=== PATIENT | female | born 1965 | race Caucasian/White ===

== ENCOUNTER → 2018-05-22 12:26 | Outpatient (CLI) | payer OTHER, BC, SELFPAY ==
[2018-05-22 12:57] LABS: Add Manual Diff / Slide Review NO; Basophils Percent Auto 0.6 % (0-2); Eosinophils Percent Auto 1.8 % (2-4); Hematocrit 40.5 % (36-46); Hemoglobin 13.5 g/dL (12.0-16.0); Lymphocytes Percent Auto 23.4 % (25-40); Mean Corpuscular HGB Conc 33.3 % (30-36); Mean Corpuscular Hemoglobin 27.9 PG (26-34); Mean Corpuscular Volume 83.6 fL (80-100); Monocytes Percent Auto 6.1 % (3-14); Neutrophils Absolute Auto 4800 /uL (3000-5900); Neutrophils Percent Auto 68.1 % (50-75); Platelet Count 216 X10^3/uL (150-400); Red Blood Cell Count 4.85 X10^6/uL (4.0-5.2); Red Cell Distribution Width 14.1 % (11.6-14.8)
[2018-05-22 13:09] LABS: Alanine Aminotransferase 34 IU/L (9-52); Albumin 4.7 g/dL (3.5-5.0); Albumin Globulin Ratio 1.4 (1.0-2.8); Alkaline Phosphatase 70 U/L (38-126); Aspartate Aminotransferase 24 IU/L (14-36); BUN Creatinine Ratio 27.1 (6-22); Bilirubin Total 0.7 mg/dL (0.2-1.3); Blood Urea Nitrogen 19 mg/dL (7-17); Calcium 9.5 mg/dL (8.4-10.2); Carbon Dioxide 25 mmol/L (22-32); Chloride 107 mmol/L (98-107); Cholesterol 202 mg/dL (140-199); Estimated Glomerular Filt Rate > 60.0 mL/min (>60); Globulin 3.3 g/dL (1.7-4.1); Glucose 89 mg/dL (70-100); HDL Cholesterol 47 mg/dL (40-60); HEMOLYSIS < 15 (0-50); LDL Cholesterol Calculated 139 mg/dL (<100); Potassium 4.4 mmol/L (3.4-5.1); Sodium 144 mmol/L (137-145); Triglycerides 78 mg/dL (35-150)
[2018-05-22 15:05] LABS: Thyroid Stimulating Hormone 2.14 uIU/mL (0.47-4.68)
== END ==
PROVIDERS: Visit Provider Naturopath
DX: Z00.00 Encounter for general adult medical examination without abnormal findings (principal)
CPT/HCPCS: 36415; 80053; 80061; 84443; 85025

== ENCOUNTER → 2018-07-23 10:17 | Outpatient (CLI) | payer OTHER, BC, SELFPAY ==
--- NOTE | 2018-07-23 | DI.MG.S_ITS ---
BILATERAL DIGITAL SCREENING MAMMOGRAM 3D/2D WITH CAD: 07/23/2018 CLINICAL: Routine screening. Baseline by default. No prior exams were available for comparison. There are scattered fibroglandular elements in both breasts. Current study was also evaluated with a Computer Aided Detection (CAD) system. No significant masses, calcifications, or other findings are seen in either breast. IMPRESSION: NEGATIVE There is no mammographic evidence of malignancy. A 1 year screening mammogram is recommended. NOTE: For mammograms, a report in lay terms will be sent to the patient. Approximately 15% of breast malignancies will not be visualized mammographically. In the management of a palpable breast mass, a negative mammogram must not discourage biopsy of a clinically suspicious lesion. Electronically Signed By: Dinah guerra/[email or web address]:07/23/2018 14:56:41 letter sent: Normal Exam ACR BI-RADS Category 1: Negative [id number]
== END ==
PROVIDERS: Visit Provider Naturopath
DX: Z12.31 Encounter for screening mammogram for malignant neoplasm of breast (principal)
CPT/HCPCS: 77063; 77067

== ENCOUNTER → 2018-12-13 14:10 | Outpatient (CLI) | payer OTHER, BC, SELFPAY ==
[2018-12-13 14:29] LABS: Add Manual Diff / Slide Review NO; Basophils Absolute Auto 0 /uL (0-100); Basophils Percent Auto 0.5 % (0-2); Eosinophils Absolute Auto 0 /uL (0-450); Eosinophils Percent Auto 0.2 % (2-4); Hematocrit 39.7 % (36-46); Hemoglobin 13.4 g/dL (12.0-16.0); Lymphocytes Absolute Auto 1000 /uL (1100-4500); Lymphocytes Percent Auto 11.1 % (25-40); Mean Corpuscular HGB Conc 33.7 % (30-36); Mean Corpuscular Hemoglobin 27.9 PG (26-34); Mean Corpuscular Volume 82.6 fL (80-100); Monocytes Absolute Auto 600 /uL (0-900); Monocytes Percent Auto 6.7 % (3-14); Neutrophils Absolute Auto 7600 /uL (1500-7000); Neutrophils Percent Auto 81.5 % (50-75); Platelet Count 194 X10^3/uL (150-400); Red Cell Distribution Width 13.8 % (11.6-14.8); White Blood Cell Count 9.3 X10^3/uL (4.5-11.0)
[2018-12-13 14:40] LABS: Alanine Aminotransferase 28 IU/L (9-52); Albumin 4.8 g/dL (3.5-5.0); Albumin Globulin Ratio 1.3 (1.0-2.8); Alkaline Phosphatase 63 U/L (38-126); Aspartate Aminotransferase 19 IU/L (14-36); Bilirubin Total 0.7 mg/dL (0.2-1.3); Blood Urea Nitrogen 14 mg/dL (7-17); Calcium 9.3 mg/dL (8.4-10.2); Carbon Dioxide 24 mmol/L (22-32); Chloride 102 mmol/L (98-107); Estimated Glomerular Filt Rate > 60.0 mL/min (>60); Globulin 3.6 g/dL (1.7-4.1); Glucose 101 mg/dL (70-100); HEMOLYSIS < 15 (0-50); Potassium 4.1 mmol/L (3.4-5.1); Sodium 138 mmol/L (137-145); Total Protein 8.4 g/dL (6.3-8.2)
== END ==
PROVIDERS: Visit Provider Specialist
DX: N10 Acute pyelonephritis (principal)
CPT/HCPCS: 36415; 80053; 85025

== ENCOUNTER 2018-12-30 10:30 | Outpatient (RCR) | payer OTHER, BC, SELFPAY ==
--- NOTE | 2018-09-04 12:02 | PT.OIE ---
Current Diagnoses Mixed incontinence (09/04/18) Provider Visit Care Team Role Provider Type Gerri Agudelo MD Attending Provider Physician Specialty: Family Practice Address: [address] [place] [address], [facility] Email: Physical Therapy Initial Evaluation PT-OP-A Visit Information Start: 09/04/18 11:32 Freq: Status: Active Protocol: Document 09/04/18 11:34 [facility] (Rec: 09/04/18 12:00 [facility] [id number]) Out-Patient Physical Therapy Visit Information Visit Information Visit Type Initial Evaluation Visit Start Time 10:30 Visit Stop Time 11:15 Total Visit Minutes 45 Visit Number 1 Evaluation Information Evaluation Date 09/04/18 PT-OP-B Current Condition Start: 09/04/18 11:32 Freq: Status: Active Protocol: Document 09/04/18 11:34 [facility] (Rec: 09/04/18 12:00 [facility] [id number]) Current Condition History of Current Condition Onset Date 12 months ago Current Complaints urinary incontinence both urge and stress History of Current Condition Beryl is a 52 year old female who has been expereincing constant urinary leakage now for the past year. 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 She worked 7 days a week from February through May and would work up to 12 hour days without a break including without a bathroom break. She had to significantly reduce her fluid intake during this time and following the completion of this job in May she began experiencing her symptoms of urinary leakage. PT-OP-I Pelvic Floor Start: 09/04/18 11:32 Freq: Status: Active Protocol: Document 09/04/18 11:34 [facility] (Rec: 09/04/18 12:00 [facility] [id number]) Pelvic Floor Assessment Urine Pelvic Floor Surgery No Urinary Symptoms Urge Sensation Leakage Size Large Leakage Cause Cough Exercise Lifting Sneeze Urge Other Leakage Causes leakage is constant throughout the day and also occurs at night. Leaks Per Day leakage is happening frequently throughout the day Nocturia yes Pads Used In 24 Hours several Urine Pad Type Maxi Pad Pelvic Clock Pelvic Clock 12-3 Atrophy Pelvic Clock 3-6 Tightness Pelvic Clock 6-9 Atrophy Tightness Pelvic Clock Other difficulty relaxing the pelvic floor following a contraction SEMG (uV) Baseline 2 10 Second Contraction 6.9 Recruitment Pattern Fair Relaxation Fair Holding Poor/Slow Stability of Hold Poor/Slow SEMG Stability of Rest Fair Contraction Ability Voluntary Contraction Weak Voluntary Relaxation Weak Manual Muscle Testing Left 2 Manual Muscle Testing Right 2 Manual Muscle Testing Anterior 2 Manual Muscle Testing Posterior 2 Muscle Endurance (Seconds) 5 Comments Pelvic Floor Comments initially difficulty relaxing the pelvic floor followign a contraction but Beryl responded well to Biofeedback and her resting tone was improved with repetitions. Her endurance is limited and contractions were shakey PT-OP-Q Treatments Start: 09/04/18 11:32 Freq: Status: Active Protocol: Document 09/04/18 12:00 [facility] (Rec: 09/04/18 12:02 [facility] [id number]) Therapeutic Exercises Supine Exercises 1 Supine Exercise Name pelvic floor quick contractions Reps/Minutes 10 reps Comments Beryl was educated on urge deference technique pelvic floor long holds Supine Exercise Name pelvic floor long holds Equipment Used EMG biofeedback Reps/Minutes 10 second hold with 10 sec rest Comments gave 5 second hold with 10 second rest for home PT-OP-T Assessment and Plan Start: 09/04/18 11:32 Freq: Status: Active Protocol: Document 09/04/18 11:34 [facility] (Rec: 09/04/18 12:00 [facility] [id number]) Physical Therapy Assessment Rehab Potential Rehabilitation Potential Excellent Evaluation Complexity Number of Personal Factors/Comorbidities 0 Number of Body Systems Impaired 1-2 Clinical Presentation at Evaluation Stable Impairments Impairments Activity Tolerance Strength Tone Other Impairments urinary urge and stress incontinence Goals Four Impairment poor endurance of the pelvic floor Short Term Goal (STG) Improve endurance of the pelvic floor to 10 second hold time or better in supine STG Duration 5 weeks Three Impairment Urinary stress incontinence Shelter Goal (LTG) With strengthening Beryl is able to reduce pad use to 1 xm or less per day Two Impairment Decreased strength of the pelvic floor 2/5 MMT Vegetable Farming Supervisor Goal (LTG) Beryl is able to improve the strength of her pelvic floor with home exercise program and EMG biofeedback LTG Duration 8 weeks One Impairment Urinary frequency and urgency Short Term Goal (STG) Beryl is educated in the urge deference technique to begin working on calming down the urge to void STG Duration 5 weeks Assessment Summary Assessment Beryl is a 52 year old female evaluated today for a 12 month hx of urinary stress and urge incontinence. Her symptoms began after she worked from February through May for a [employer] on Saturday. She worked 7 days per week and often up to 12 hour days without being given a lunch break or a bathroom break. She trained herself during that time to delay the need to void and she restricted her fluid intake. It was after this period of time that she began having symptoms of incontinence. It has gotten to the point now that she leaks constantly throughout the day and also wakes up wet at night. She goes through several thick pads per day. She does have the sensation that she needs to void with a strong urge but is often not able to make it to the bathroom on time. I gave her a bladder diary to begin working on to get a idea of her voiding schedule and leaks per day as well as fluid intake. With examination her pelvic floor is weak but she is able to facilitate all parts of the levator ani. She is guarded some on her side crystal and had difficulty with relaxation following a contraction. I would imagine she tightened her pelvic floor quite a bit trying to hold all day. We did start EMG biofeedback and with this she was able to relax her pelvic floor better. She has difficulty with sustaining a pelvic floor contraction and her contractions are quite shakey. I did educate her on the urge deference technique today just to try and void not at the peak of the urge and with time we will work on a voiding schedule. I am thinking her bladder was over stretched trying to delay the need to void for so long. The plan is to work on the pelvic floor, urge deference technique, and bladder retraining at this point. She may also be a candidate for Neuro muscular electrical stimulation home rental program Physical Therapy Plan Frequency and Duration Frequency of Treatment 1x/Week Duration of Treatment 8 weeks Plan of Care Start Date 09/04/18 Plan of Care End Date 10/30/18 Therapeutic Interventions Therapeutic Interventions Home Exercise Program Neuromuscular Re-education Patient/Caregiver Education Self-Care/Home Management Therapeutic Exercises Modalities Biofeedback Next Visit Focus/Plan Next Note Type Treatment Note Next Visit Plan begin strengthening the hips and lower abdominal musculature to assist the pelvic floor
--- NOTE | 2018-09-25 14:26 | PT.OTN ---
Current Diagnoses Mixed incontinence (09/25/18) Physical Therapy Treatment Note PT-OP-A Visit Information Start: 09/04/18 11:32 Freq: Status: Active Protocol: Document 09/25/18 14:16 [facility] (Rec: 09/25/18 14:25 [facility] [id number]) Out-Patient Physical Therapy Visit Information Visit Information Visit Type Treatment Note Visit Start Time 11:15 Visit Stop Time 12:10 Total Visit Minutes 55 Visit Number 2 Evaluation Information Evaluation Date 09/04/18 PT-OP-B Current Condition Start: 09/04/18 11:32 Freq: Status: Active Protocol: Document 09/04/18 11:34 [facility] (Rec: 09/04/18 12:00 [facility] [id number]) Current Condition History of Current Condition Onset Date 12 months ago Current Complaints urinary incontinence both urge and stress History of Current Condition Beryl is a 52 year old female who has been expereincing constant urinary leakage now for the past year. 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 She worked 7 days a week from February through May and would work up to 12 hour days without a break including without a bathroom break. She had to significantly reduce her fluid intake during this time and following the completion of this job in May she began experiencing her symptoms of urinary leakage. PT-OP-C Subjective Start: 09/04/18 11:32 Freq: Status: Active Protocol: Document 09/25/18 14:25 [facility] (Rec: 09/25/18 14:26 [facility] [email or web address]) OP-PT Subjective Patient Comments Patient Comments feeling like there has been no change in her symptoms so is feeling frustrated Patient Reported Progress Same PT-OP-I Pelvic Floor Start: 09/04/18 11:32 Freq: Status: Active Protocol: Document 09/04/18 11:34 [facility] (Rec: 09/04/18 12:00 [facility] [id number]) Pelvic Floor Assessment Urine Pelvic Floor Surgery No Urinary Symptoms Urge Sensation Leakage Size Large Leakage Cause Cough Exercise Lifting Sneeze Urge Other Leakage Causes leakage is constant throughout the day and also occurs at night. Leaks Per Day leakage is happening frequently throughout the day Nocturia yes Pads Used In 24 Hours several Urine Pad Type Maxi Pad Pelvic Clock Pelvic Clock 12-3 Atrophy Pelvic Clock 3-6 Tightness Pelvic Clock 6-9 Atrophy Tightness Pelvic Clock Other difficulty relaxing the pelvic floor following a contraction SEMG (uV) Baseline 2 10 Second Contraction 6.9 Recruitment Pattern Fair Relaxation Fair Holding Poor/Slow Stability of Hold Poor/Slow SEMG Stability of Rest Fair Contraction Ability Voluntary Contraction Weak Voluntary Relaxation Weak Manual Muscle Testing Left 2 Manual Muscle Testing Right 2 Manual Muscle Testing Anterior 2 Manual Muscle Testing Posterior 2 Muscle Endurance (Seconds) 5 Comments Pelvic Floor Comments initially difficulty relaxing the pelvic floor followign a contraction but Beryl responded well to Biofeedback and her resting tone was improved with repetitions. Her endurance is limited and contractions were shakey PT-OP-Q Treatments Start: 09/04/18 11:32 Freq: Status: Active Protocol: Document 09/25/18 14:16 [facility] (Rec: 09/25/18 14:25 [facility] [id number]) Therapeutic Exercises Supine Exercises 2 Supine Exercise Name TA facilitation in quadraped with relaxed awareness of the abdominal wall Comments emphasis on relaxed awareness of the abdominal wall 1 Supine Exercise Name pelvic floor quick contractions Reps/Minutes 10 reps Comments Beryl was educated on urge deference technique pelvic floor long holds Supine Exercise Name pelvic floor long holds Equipment Used EMG biofeedback Reps/Minutes 10 second hold with 10 sec rest Comments gave 5 second hold with 10 second rest for home Prone Exercises 1 Prone Exercise Name prone cobra stretch Comments for the bladder Other Exercises 1 Other Exercise Name pro pose Comments with breathing techniques for the pelvic floor Manual Therapy Treatment Soft Tissue Mobilization 1 Body Location MFR over the bladder and suprapubic fascia Comments pt taught how to self stretch her bladder Neuro Re-Education Treatment Other Activities 1 Details neuromuscular re-education of the pelvic floor with NMES Comments facilitating the pelvic floor contractions Self-Care/Home Management Treatment Education Patient Education Home Exercise Program Other Education education on regular voiding intervals, bladder diary given again to Beryl as she misplaced the last one, education on self MFR over the bladder, and education on voiding techniques to fully empty the bladder PT-OP-T Assessment and Plan Start: 09/04/18 11:32 Freq: Status: Active Protocol: Document 09/25/18 14:16 [facility] (Rec: 09/25/18 14:25 [facility] [id number]) Physical Therapy Assessment Assessment Summary Assessment Beryl is feeling like she hasn 't made any change yet in her symptoms. We reviewed the urge deference technique today and I advised a regular voiding schedule for her as well as avoiding any bladder irritants. She is demonstrating improved strength of the pelvic floor today and has a little better understanding of relaxed awareness of her pelvic floor. I did start NMES to 12:50 to help relax her bladder and facilitate the pelvic floor Physical Therapy Plan Frequency and Duration Frequency of Treatment 1x/Week Duration of Treatment 8 weeks Plan of Care Start Date 09/04/18 Plan of Care End Date 10/30/18 Therapeutic Interventions Therapeutic Interventions Home Exercise Program Neuromuscular Re-education Patient/Caregiver Education Self-Care/Home Management Therapeutic Exercises Modalities Biofeedback Next Visit Focus/Plan Next Note Type Treatment Note Next Visit Plan review stretches and urge deference technique, work on facilitation of the lower abdominal musculature to assist the pelvic floor, continue working on pelvic floor facilitation and relaxed awareness.
--- NOTE | 2018-10-16 16:33 | PT.OTN ---
Current Diagnoses Mixed incontinence (10/16/18) Physical Therapy Treatment Note PT-OP-A Visit Information Start: 09/04/18 11:32 Freq: Status: Active Protocol: Document 10/16/18 16:27 [facility] (Rec: 10/16/18 16:33 [facility] [id number]) Out-Patient Physical Therapy Visit Information Visit Information Visit Type Treatment Note Visit Start Time 11:15 Visit Stop Time 12:00 Total Visit Minutes 45 Visit Number 3 Evaluation Information Evaluation Date 09/04/18 PT-OP-B Current Condition Start: 09/04/18 11:32 Freq: Status: Active Protocol: Document 09/04/18 11:34 [facility] (Rec: 09/04/18 12:00 [facility] [id number]) Current Condition History of Current Condition Onset Date 12 months ago Current Complaints urinary incontinence both urge and stress History of Current Condition Beryl is a 52 year old female who has been expereincing constant urinary leakage now for the past year. 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 She worked 7 days a week from February through May and would work up to 12 hour days without a break including without a bathroom break. She had to significantly reduce her fluid intake during this time and following the completion of this job in May she began experiencing her symptoms of urinary leakage. PT-OP-C Subjective Start: 09/04/18 11:32 Freq: Status: Active Protocol: Document 10/16/18 16:27 [facility] (Rec: 10/16/18 16:33 [facility] [id number]) OP-PT Subjective Patient Comments Patient Comments Ordering the home NMES unit today for rental for a month. Has been trying to do the urge deference technique and keeping on a voiding schedule PT-OP-I Pelvic Floor Start: 09/04/18 11:32 Freq: Status: Active Protocol: Document 09/04/18 11:34 [facility] (Rec: 09/04/18 12:00 [facility] [id number]) Pelvic Floor Assessment Urine Pelvic Floor Surgery No Urinary Symptoms Urge Sensation Leakage Size Large Leakage Cause Cough Exercise Lifting Sneeze Urge Other Leakage Causes leakage is constant throughout the day and also occurs at night. Leaks Per Day leakage is happening frequently throughout the day Nocturia yes Pads Used In 24 Hours several Urine Pad Type Maxi Pad Pelvic Clock Pelvic Clock 12-3 Atrophy Pelvic Clock 3-6 Tightness Pelvic Clock 6-9 Atrophy Tightness Pelvic Clock Other difficulty relaxing the pelvic floor following a contraction SEMG (uV) Baseline 2 10 Second Contraction 6.9 Recruitment Pattern Fair Relaxation Fair Holding Poor/Slow Stability of Hold Poor/Slow SEMG Stability of Rest Fair Contraction Ability Voluntary Contraction Weak Voluntary Relaxation Weak Manual Muscle Testing Left 2 Manual Muscle Testing Right 2 Manual Muscle Testing Anterior 2 Manual Muscle Testing Posterior 2 Muscle Endurance (Seconds) 5 Comments Pelvic Floor Comments initially difficulty relaxing the pelvic floor followign a contraction but Beryl responded well to Biofeedback and her resting tone was improved with repetitions. Her endurance is limited and contractions were shakey PT-OP-Q Treatments Start: 09/04/18 11:32 Freq: Status: Active Protocol: Document 10/16/18 16:27 [facility] (Rec: 10/16/18 16:33 [facility] [id number]) Therapeutic Exercises Supine Exercises 3 Supine Exercise Name templates for eccentric control and coordination 2 Supine Exercise Name TA facilitation in quadraped with relaxed awareness of the abdominal wall Comments emphasis on relaxed awareness of the abdominal wall 1 Supine Exercise Name pelvic floor quick contractions Reps/Minutes 10 reps Comments Beryl was educated on urge deference technique pelvic floor long holds Supine Exercise Name pelvic floor long holds Equipment Used EMG biofeedback Reps/Minutes 10 second hold with 10 sec rest Comments gave 5 second hold with 10 second rest for home Other Exercises 2 Other Exercise Name TA with opp arm, opp leg lifts Reps/Minutes x 10 Neuro Re-Education Treatment Other Activities 1 Details neuromuscular re-education of the pelvic floor with NMES Comments facilitating the pelvic floor contractions with NMES unit 10 min 12:50 setting PT-OP-T Assessment and Plan Start: 09/04/18 11:32 Freq: Status: Active Protocol: Document 10/16/18 16:27 [facility] (Rec: 10/16/18 16:33 [facility] [id number]) Physical Therapy Assessment Assessment Summary Assessment Beryl would benefit from a home NMES unit for a month rental. She is able to feel more anterior sensation from the pelvic floor with the unit than without. Improved resting tone today to baseline Physical Therapy Plan Frequency and Duration Frequency of Treatment 1x/Week Duration of Treatment 8 weeks Plan of Care Start Date 09/04/18 Plan of Care End Date 10/30/18 Therapeutic Interventions Therapeutic Interventions Home Exercise Program Neuromuscular Re-education Patient/Caregiver Education Self-Care/Home Management Therapeutic Exercises Modalities Biofeedback Next Visit Focus/Plan Next Note Type Treatment Note Next Visit Plan continue strengthening the pelvic floor and lower abdominal muscles and working on retraining the bladder
--- NOTE | 2018-10-23 12:26 | PT.OTN ---
Current Diagnoses Mixed incontinence (10/23/18) Physical Therapy Treatment Note PT-OP-A Visit Information Start: 09/04/18 11:32 Freq: Status: Active Protocol: Document 10/23/18 12:19 [facility] (Rec: 10/23/18 12:26 [facility] [id number]) Out-Patient Physical Therapy Visit Information Visit Information Visit Type Treatment Note Visit Start Time 11:15 Visit Stop Time 12:00 Total Visit Minutes 45 Visit Number 4 Evaluation Information Evaluation Date 09/04/18 PT-OP-B Current Condition Start: 09/04/18 11:32 Freq: Status: Active Protocol: Document 09/04/18 11:34 [facility] (Rec: 09/04/18 12:00 [facility] [id number]) Current Condition History of Current Condition Onset Date 12 months ago Current Complaints urinary incontinence both urge and stress History of Current Condition Beryl is a 52 year old female who has been expereincing constant urinary leakage now for the past year. 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 She worked 7 days a week from February through May and would work up to 12 hour days without a break including without a bathroom break. She had to significantly reduce her fluid intake during this time and following the completion of this job in May she began experiencing her symptoms of urinary leakage. PT-OP-C Subjective Start: 09/04/18 11:32 Freq: Status: Active Protocol: Document 10/23/18 12:19 [facility] (Rec: 10/23/18 12:26 [facility] [email or web address]) OP-PT Subjective Patient Comments Patient Comments Decreased leakage this week and no major accidents. Overnight is doing better asd well. Patient Reported Progress Improving PT-OP-I Pelvic Floor Start: 09/04/18 11:32 Freq: Status: Active Protocol: Document 09/04/18 11:34 [facility] (Rec: 09/04/18 12:00 [facility] [id number]) Pelvic Floor Assessment Urine Pelvic Floor Surgery No Urinary Symptoms Urge Sensation Leakage Size Large Leakage Cause Cough Exercise Lifting Sneeze Urge Other Leakage Causes leakage is constant throughout the day and also occurs at night. Leaks Per Day leakage is happening frequently throughout the day Nocturia yes Pads Used In 24 Hours several Urine Pad Type Maxi Pad Pelvic Clock Pelvic Clock 12-3 Atrophy Pelvic Clock 3-6 Tightness Pelvic Clock 6-9 Atrophy Tightness Pelvic Clock Other difficulty relaxing the pelvic floor following a contraction SEMG (uV) Baseline 2 10 Second Contraction 6.9 Recruitment Pattern Fair Relaxation Fair Holding Poor/Slow Stability of Hold Poor/Slow SEMG Stability of Rest Fair Contraction Ability Voluntary Contraction Weak Voluntary Relaxation Weak Manual Muscle Testing Left 2 Manual Muscle Testing Right 2 Manual Muscle Testing Anterior 2 Manual Muscle Testing Posterior 2 Muscle Endurance (Seconds) 5 Comments Pelvic Floor Comments initially difficulty relaxing the pelvic floor followign a contraction but Beryl responded well to Biofeedback and her resting tone was improved with repetitions. Her endurance is limited and contractions were shakey PT-OP-Q Treatments Start: 09/04/18 11:32 Freq: Status: Active Protocol: Document 10/23/18 12:19 [facility] (Rec: 10/23/18 12:26 [facility] [email or web address]) Therapeutic Exercises Supine Exercises 4 Supine Exercise Name ball squeeze with pelvic floor activation 3 Supine Exercise Name templates for eccentric control and coordination 2 Supine Exercise Name TA facilitation in quadraped with relaxed awareness of the abdominal wall Comments emphasis on relaxed awareness of the abdominal wall 1 Supine Exercise Name pelvic floor quick contractions Reps/Minutes 10 reps Comments Beryl was educated on urge deference technique pelvic floor long holds Supine Exercise Name pelvic floor long holds Equipment Used EMG biofeedback Reps/Minutes 10 second hold with 10 sec rest Comments gave 5 second hold with 10 second rest for home Prone Exercises 1 Prone Exercise Name prone cobra stretch Comments for the bladder Other Exercises 2 Other Exercise Name TA with opp arm, opp leg lifts Reps/Minutes x 10 1 Other Exercise Name pro pose Comments with breathing techniques for the pelvic floor Neuro Re-Education Treatment Other Activities 1 Details neuromuscular re-education of the pelvic floor with NMES Comments facilitating the pelvic floor contractions with NMES unit 10 min 12:50 setting PT-OP-T Assessment and Plan Start: 09/04/18 11:32 Freq: Status: Active Protocol: Document 10/23/18 12:19 [facility] (Rec: 10/23/18 12:26 [facility] [email or web address]) Physical Therapy Assessment Assessment Summary Assessment Good improvements in endurance of the pelvic floor. Average is 10.3 uv max is 17 uv Physical Therapy Plan Frequency and Duration Frequency of Treatment 1x/Week Duration of Treatment 8 weeks Plan of Care Start Date 09/04/18 Plan of Care End Date 10/30/18 Therapeutic Interventions Therapeutic Interventions Home Exercise Program Neuromuscular Re-education Patient/Caregiver Education Self-Care/Home Management Therapeutic Exercises Modalities Biofeedback Next Visit Focus/Plan Next Note Type Treatment Note Next Visit Plan continue strengthening the pelvic floor and lower abdominal muscles. Recheck pelvic floor strength next visit
--- NOTE | 2018-12-03 10:13 | PT.OTN ---
Current Diagnoses Mixed incontinence (12/02/18) Physical Therapy Treatment Note PT-OP-A Visit Information Start: 09/04/18 11:32 Freq: Status: Active Protocol: Document 12/02/18 10:30 [facility] (Rec: 12/03/18 10:12 [facility] [id number]) Out-Patient Physical Therapy Visit Information Visit Information Visit Type Progress Note Visit Start Time 10:30 Visit Stop Time 11:15 Total Visit Minutes 45 Visit Number 5 Evaluation Information Evaluation Date 09/04/18 PT-OP-B Current Condition Start: 09/04/18 11:32 Freq: Status: Active Protocol: Document 09/04/18 11:34 [facility] (Rec: 09/04/18 12:00 [facility] [id number]) Current Condition History of Current Condition Onset Date 12 months ago Current Complaints urinary incontinence both urge and stress History of Current Condition Beryl is a 52 year old female who has been expereincing constant urinary leakage now for the past year. 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 She worked 7 days a week from February through May and would work up to 12 hour days without a break including without a bathroom break. She had to significantly reduce her fluid intake during this time and following the completion of this job in May she began experiencing her symptoms of urinary leakage. PT-OP-C Subjective Start: 09/04/18 11:32 Freq: Status: Active Protocol: Document 12/02/18 10:30 [facility] (Rec: 12/03/18 10:12 [facility] [id number]) OP-PT Subjective Patient Comments Patient Comments Beryl reports her symptoms are improving. She reports having a little more control now. She has not been able to rent the home NMES unit due to finances and wishes to continue PT. PT-OP-I Pelvic Floor Start: 09/04/18 11:32 Freq: Status: Active Protocol: Document 12/02/18 10:30 [facility] (Rec: 12/03/18 10:12 [facility] [id number]) Pelvic Floor Assessment Urine Pelvic Floor Surgery No Urinary Symptoms Urge Sensation Other Leakage Causes leakage is no longer constant and Beryl feels that she has a little more control now Leaks Per Day still leaking but not as frequent Nocturia yes Pads Used In 24 Hours slowly decreasing Urine Pad Type Maxi Pad SEMG (uV) Baseline 0 10 Second Contraction 10.3 Recruitment Pattern Good Relaxation Good Holding Fair Stability of Hold Fair SEMG Stability of Rest Good Comments Pelvic Floor Comments Beryl is demonstrating improved facilitation of her pelvic floor and she is able to feel her contractions now as well as hold her contractions for improved endurance PT-OP-Q Treatments Start: 09/04/18 11:32 Freq: Status: Active Protocol: Document 10/23/18 12:19 [facility] (Rec: 10/23/18 12:26 [facility] [id number]) Therapeutic Exercises Supine Exercises 4 Supine Exercise Name ball squeeze with pelvic floor activation 3 Supine Exercise Name templates for eccentric control and coordination 2 Supine Exercise Name TA facilitation in quadraped with relaxed awareness of the abdominal wall Comments emphasis on relaxed awareness of the abdominal wall 1 Supine Exercise Name pelvic floor quick contractions Reps/Minutes 10 reps Comments Beryl was educated on urge deference technique pelvic floor long holds Supine Exercise Name pelvic floor long holds Equipment Used EMG biofeedback Reps/Minutes 10 second hold with 10 sec rest Comments gave 5 second hold with 10 second rest for home Prone Exercises 1 Prone Exercise Name prone cobra stretch Comments for the bladder Other Exercises 2 Other Exercise Name TA with opp arm, opp leg lifts Reps/Minutes x 10 1 Other Exercise Name pro pose Comments with breathing techniques for the pelvic floor Neuro Re-Education Treatment Other Activities 1 Details neuromuscular re-education of the pelvic floor with NMES Comments facilitating the pelvic floor contractions with NMES unit 10 min 12:50 setting PT-OP-T Assessment and Plan Start: 09/04/18 11:32 Freq: Status: Active Protocol: Document 12/02/18 10:30 [facility] (Rec: 12/03/18 10:12 [facility] [id number]) Physical Therapy Assessment Progress Towards Goals Progress Towards Goals Progressing Toward Goals Assessment Summary Assessment Beryl is making steady progress with physical therapy . She is able to feel her contractions now and has improved her endurance of the pelvic floor. Her EMG readings have improved from 6. 9 to 10.3 uv. She is beginning to report decreased leakage and is no longer constantly leaking throughout the day. She is more aware of controling the urge to void. Beryl would benefit from continued PT. She responds well to the NMES for improved sensation and she is not able to rent this unit for home at this time due to finances. Physical Therapy Plan Frequency and Duration Frequency of Treatment 1x/Week Duration of Treatment 8 weeks Plan of Care Start Date 12/02/18 Plan of Care End Date 01/27/19 Therapeutic Interventions Therapeutic Interventions Home Exercise Program Neuromuscular Re-education Patient/Caregiver Education Self-Care/Home Management Therapeutic Exercises Modalities Biofeedback Next Visit Focus/Plan Next Note Type Treatment Note Next Visit Plan continue strengthening the pelvic floor and lower abdominal muscles. Recheck pelvic floor strength next visit and begin working on dynamic upright strengthening.
--- NOTE | 2018-12-03 10:13 | PT.OPPOC ---
Current Diagnoses Mixed incontinence (12/02/18) Provider Visit Care Team Role Provider Type Cristina Agudelo ND Attending Provider Non-Staff Specialty: Naturopathy Address: [address] [place] [address], [id number] Email: Plan Of Care PT-OP-T Assessment and Plan Start: 09/04/18 11:32 Freq: Status: Active Protocol: Document 12/02/18 10:30 [facility] (Rec: 12/03/18 10:12 [facility] [id number]) Physical Therapy Assessment Progress Towards Goals Progress Towards Goals Progressing Toward Goals Assessment Summary Assessment Beryl is making steady progress with physical therapy . She is able to feel her contractions now and has improved her endurance of the pelvic floor. Her EMG readings have improved from 6. 9 to 10.3 uv. She is beginning to report decreased leakage and is no longer constantly leaking throughout the day. She is more aware of controling the urge to void. Beryl would benefit from continued PT. She responds well to the NMES for improved sensation and she is not able to rent this unit for home at this time due to finances. Physical Therapy Plan Frequency and Duration Frequency of Treatment 1x/Week Duration of Treatment 8 weeks Plan of Care Start Date 12/02/18 Plan of Care End Date 01/27/19 Therapeutic Interventions Therapeutic Interventions Home Exercise Program Neuromuscular Re-education Patient/Caregiver Education Self-Care/Home Management Therapeutic Exercises Modalities Biofeedback Next Visit Focus/Plan Next Note Type Treatment Note Next Visit Plan continue strengthening the pelvic floor and lower abdominal muscles. Recheck pelvic floor strength next visit and begin working on dynamic upright strengthening. Plan of Care Dates Plan of Care Start Date 12/02/18 Plan of Care End Date 01/27/19 Please Sign and Return: I have reviewed this Plan of Care and certify that the skilled therapy services above are required to meet the patient?s needs. Physician Signature Date Printed Name and Credentials Clinical Instructor Signature Printed Name and Credentials
--- NOTE | 2018-12-30 17:25 | PT.OTN ---
Current Diagnoses Mixed incontinence (12/30/18) Physical Therapy Treatment Note PT-OP-A Visit Information Start: 09/04/18 11:32 Freq: Status: Active Protocol: Document 12/30/18 17:01 [facility] (Rec: 12/30/18 17:22 [facility] [id number]) Out-Patient Physical Therapy Visit Information Visit Information Visit Type Treatment Note Visit Start Time 10:35 Visit Stop Time 11:15 Total Visit Minutes 40 Visit Number 6 Evaluation Information Evaluation Date 09/04/18 PT-OP-B Current Condition Start: 09/04/18 11:32 Freq: Status: Active Protocol: Document 09/04/18 11:34 [facility] (Rec: 09/04/18 12:00 [facility] [id number]) Current Condition History of Current Condition Onset Date 12 months ago Current Complaints urinary incontinence both urge and stress History of Current Condition Beryl is a 52 year old female who has been expereincing constant urinary leakage now for the past year. 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 She worked 7 days a week from February through May and would work up to 12 hour days without a break including without a bathroom break. She had to significantly reduce her fluid intake during this time and following the completion of this job in May she began experiencing her symptoms of urinary leakage. PT-OP-C Subjective Start: 09/04/18 11:32 Freq: Status: Active Protocol: Document 12/30/18 17:01 [facility] (Rec: 12/30/18 17:22 [facility] [id number]) OP-PT Subjective Patient Comments Patient Comments Beryl reports she is doing better overall. She is able to control more now compared to when she first started. Patient Reported Progress Improving PT-OP-I Pelvic Floor Start: 09/04/18 11:32 Freq: Status: Active Protocol: Document 12/02/18 10:30 [facility] (Rec: 12/03/18 10:12 [facility] [id number]) Pelvic Floor Assessment Urine Pelvic Floor Surgery No Urinary Symptoms Urge Sensation Other Leakage Causes leakage is no longer constant and Beryl feels that she has a little more control now Leaks Per Day still leaking but not as frequent Nocturia yes Pads Used In 24 Hours slowly decreasing Urine Pad Type Maxi Pad SEMG (uV) Baseline 0 10 Second Contraction 10.3 Recruitment Pattern Good Relaxation Good Holding Fair Stability of Hold Fair SEMG Stability of Rest Good Comments Pelvic Floor Comments Beryl is demonstrating improved facilitation of her pelvic floor and she is able to feel her contractions now as well as hold her contractions for improved endurance PT-OP-Q Treatments Start: 09/04/18 11:32 Freq: Status: Active Protocol: Document 12/30/18 17:23 [facility] (Rec: 12/30/18 17:25 [facility] [id number]) Therapeutic Exercises Supine Exercises 4 Supine Exercise Name ball squeeze with pelvic floor activation 3 Supine Exercise Name templates for eccentric control and coordination 1 Supine Exercise Name pelvic floor quick contractions Reps/Minutes 10 reps Comments Beryl was educated on urge deference technique pelvic floor long holds Supine Exercise Name pelvic floor long holds Equipment Used EMG biofeedback Reps/Minutes 10 second hold with 10 sec rest Comments gave 5 second hold with 10 second rest for home Neuro Re-Education Treatment Other Activities 1 Details neuromuscular re-education of the pelvic floor with NMES Comments facilitating the pelvic floor contractions with NMES unit 10 min 12:50 setting Self-Care/Home Management Treatment Education Patient Education Home Exercise Program Other Education progression of exercises and review of urge deference technique PT-OP-T Assessment and Plan Start: 09/04/18 11:32 Freq: Status: Active Protocol: Document 12/30/18 17:01 [facility] (Rec: 12/30/18 17:22 [facility] [id number]) Physical Therapy Assessment Assessment Summary Assessment Good increase with pelvic floor strength and decreasing c/o urgency. Beryl plans on starting at the gym and working with a corporate sales trainer to start with weights. Physical Therapy Plan Frequency and Duration Frequency of Treatment 1x/Week Duration of Treatment 8 weeks Plan of Care Start Date 12/02/18 Plan of Care End Date 01/27/19 Therapeutic Interventions Therapeutic Interventions Home Exercise Program Neuromuscular Re-education Patient/Caregiver Education Self-Care/Home Management Therapeutic Exercises Modalities Biofeedback Next Visit Focus/Plan Next Note Type Treatment Note Next Visit Plan continue strengthening the pelvic floor and lower abdominal muscles. Recheck pelvic floor strength next visit and begin working on dynamic upright strengthening.
--- NOTE | 2019-09-17 15:07 | PT.OPDS ---
Current Diagnoses Mixed incontinence (12/30/18) Visit Care Team Role Provider Type Cristina Agudelo ND Attending Provider Non-Staff Specialty: Naturopathy Address: [address] [place] [address], [facility] Email: Visit Number Visit Number 6 Discharge Summary PT-OP-B Current Condition Start: 09/04/18 11:32 Freq: Status: Active Protocol: Document 09/04/18 11:34 [facility] (Rec: 09/04/18 12:00 [facility] [id number]) Current Condition History of Current Condition Onset Date 12 months ago Current Complaints urinary incontinence both urge and stress History of Current Condition Beryl is a 52 year old female who has been expereincing constant urinary leakage now for the past year. 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 She worked 7 days a week from February through May and would work up to 12 hour days without a break including without a bathroom break. She had to significantly reduce her fluid intake during this time and following the completion of this job in May she began experiencing her symptoms of urinary leakage. PT-OP-C Subjective Start: 09/04/18 11:32 Freq: Status: Active Protocol: Document 12/30/18 17:01 [facility] (Rec: 12/30/18 17:22 [facility] [id number]) OP-PT Subjective Patient Comments Patient Comments Beryl reports she is doing better overall. She is able to control more now compared to when she first started. Patient Reported Progress Improving PT-OP-I Pelvic Floor Start: 09/04/18 11:32 Freq: Status: Active Protocol: Document 12/02/18 10:30 [facility] (Rec: 12/03/18 10:12 [facility] [id number]) Pelvic Floor Assessment Urine Pelvic Floor Surgery No Urinary Symptoms Urge Sensation Other Leakage Causes leakage is no longer constant and Beryl feels that she has a little more control now Leaks Per Day still leaking but not as frequent Nocturia yes Pads Used In 24 Hours slowly decreasing Urine Pad Type Maxi Pad SEMG (uV) Baseline 0 10 Second Contraction 10.3 Recruitment Pattern Good Relaxation Good Holding Fair Stability of Hold Fair SEMG Stability of Rest Good Comments Pelvic Floor Comments Beryl is demonstrating improved facilitation of her pelvic floor and she is able to feel her contractions now as well as hold her contractions for improved endurance PT-OP-T Assessment and Plan Start: 09/04/18 11:32 Freq: Status: Active Protocol: Document 09/17/19 15:05 [facility] (Rec: 09/17/19 15:07 [facility] [id number]) Physical Therapy Plan Discharge Physical Therapy Discharge Reasons No Longer Attending PT Discharge Comments Beryl was able to begin a gym workout with a traininer and demonstrated a good increase in her pelvic floor strength. DC PT
== END 2018-12-31 12:10 ==
LOC: PHYS 10:30
PROVIDERS: Visit Provider Naturopath
DX: N39.46 Mixed incontinence (principal)
CPT/HCPCS: 97110; 97112; 97161; 97535

== ENCOUNTER 2019-05-16 17:21 | Emergency (ER) | payer OTHER, BC, SELFPAY ==
[2019-05-16 17:30] VITALS: BP 135/84; PULSE 83; RESP 20; TEMP 36.4; O2SAT 99; BMI 41.1
[2019-05-16 17:56] LABS: Bacteria Urine None Seen
[2019-05-16 18:15] LABS: Culture Indicated Urine Specimen Cultured; RBC Urine 10-30/HPF (0-5/HPF); WBC Urine 10-30/HPF (0-5/HPF)
[2019-05-16 18:24] VITALS: BP 130/60; PULSE 72; RESP 16; TEMP 36.8; O2SAT 98
--- NOTE | 2019-05-16 18:52 | DI.CT.S_ITS ---
PROCEDURE: CT KIDNEY URETER BLADDER (KUB) INDICATIONS: flank pain, hx stone TECHNIQUE: Noncontrast 5 mm thick sections acquired from the diaphragms to the symphysis. 5 mm thick coronal and sagittal reformats were then performed. For radiation dose reduction, the following was used: automated exposure control, adjustment of mA and/or kV according to patient size. COMPARISON: None. FINDINGS: Image quality: Excellent. Lung bases: Lung bases are clear. Heart size is normal. Urinary system: There is an 8 mm stone in the distal right ureter at the right ureterovesical junction, causing moderate hydronephrosis and hydroureter. Kidneys are normal in size. No other kidney stones. Bladder wall thickness is normal; no calcified bladder stones. Other solid organs: There is a 1.7 cm low density nodules in liver (segment IV), most likely a hepatic cyst. Liver is normal in size. Gallbladder is contracted. Pancreas is normal in contours. Spleen is normal in size. No adrenal nodules. Peritoneum and bowel: Unenhanced bowel loops demonstrate normal wall thickness and caliber. Normal appendix. No free fluid or air. Nodes and vessels: No retroperitoneal or mesenteric adenopathy by size criteria. Aorta and inferior vena cava are normal in caliber. Abdominal wall: No ventral hernias. Pelvis: Uterus and ovaries are unremarkable. No free pelvic fluid. No inguinal hernias or adenopathy. Bones: No suspicious bony lesions. No vertebral body compression fractures. IMPRESSION: 1. An 8 mm obstructing stone in the distal right ureter at the right UVJ causing moderate right hydronephrosis and hydroureter. 2. A 1.7 cm low density nodule in liver, most likely a cyst. Dictated by: Vu Penn M.D. on 05/16/2019 at 20:03 Approved by: Vu Penn M.D. on 05/16/2019 at 20:11
[2019-05-16 19:25] LABS: Add Manual Diff / Slide Review NO; Basophils Absolute Auto 100 /uL (0-100); Basophils Percent Auto 1.1 % (0-2); Eosinophils Absolute Auto 200 /uL (0-450); Eosinophils Percent Auto 2.7 % (2-4); Hematocrit 38.5 % (36-46); Hemoglobin 12.9 g/dL (12.0-16.0); Lymphocytes Absolute Auto 2600 /uL (1100-4500); Lymphocytes Percent Auto 43.8 % (25-40); Mean Corpuscular HGB Conc 33.5 % (30-36); Mean Corpuscular Hemoglobin 28.2 PG (26-34); Mean Corpuscular Volume 84.2 fL (80-100); Monocytes Absolute Auto 600 /uL (0-900); Monocytes Percent Auto 10.1 % (3-14); Neutrophils Absolute Auto 2500 /uL (1500-7000); Neutrophils Percent Auto 42.3 % (50-75); Platelet Count 176 X10^3/uL (150-400); Red Blood Cell Count 4.58 X10^6/uL (4.0-5.2); Red Cell Distribution Width 13.9 % (11.6-14.8)
[2019-05-16] MEDS: SODIUM CHLORIDE 0.9% 1,000 ML 1000 ML IV (19:30)
[2019-05-16 19:48] LABS: Alanine Aminotransferase 26 IU/L (9-52); Albumin 4.3 g/dL (3.5-5.0); Albumin Globulin Ratio 1.3 (1.0-2.8); Alkaline Phosphatase 73 U/L (38-126); Aspartate Aminotransferase 28 IU/L (14-36); BUN Creatinine Ratio 38.3 (6-22); Bilirubin Total 0.4 mg/dL (0.2-1.3); Blood Urea Nitrogen 23 mg/dL (7-17); Calcium 9.6 mg/dL (8.4-10.2); Carbon Dioxide 28 mmol/L (22-32); Chloride 105 mmol/L (98-107); Estimated Glomerular Filt Rate > 60.0 mL/min (>60); Globulin 3.2 g/dL (1.7-4.1); Glucose 95 mg/dL (70-100); HEMOLYSIS 31 (0-50); Magnesium 2.1 mg/dL (1.6-2.3); Potassium 3.9 mmol/L (3.4-5.1); Sodium 143 mmol/L (137-145); Total Protein 7.5 g/dL (6.3-8.2)
[2019-05-16] MEDS: KETOROLAC 60 MG/2 ML VIAL 30 MG IV (20:26)
[2019-05-16 20:33] VITALS: BP 128/60; PULSE 70; RESP 18; O2SAT 98
--- NOTE | 2019-05-16 20:35 | ED_ITS ---
HPI - Female Genitourinary <TRISH Moraes - Last Filed: 05/16/19 20:53> General Chief complaint: Urogenital-Female Stated complaint: right side back pain Time Seen by Provider: 05/16/19 18:41 Source: patient Mode of arrival: ambulatory Limitations: no limitations History of Present Illness HPI Narrative: Smoker with history of urinary tract infection and kidney stone who presents with a chief complaint of right-sided flank pain on and off since December. She denies any fevers nausea vomiting or diarrhea. She denies any dysuria urgency or frequency. She states she might have a kidney stone, but this is not as bad as her normal pain is. She is worried about her kidney function as a family member was recently diagnosed with kidney cancer. She denies any vaginal discharge. She has she has had a tubal ligation, so is not her concern. She denies any abdominal pain. She states that the pain stays in her right flank and nonradiating. Related Data Home Medications Medication Instructions Recorded Confirmed cholecalciferol (vitamin D3) #0 01/06/18 02/05/19 [Vitamin D3] cyanocobalamin (vitamin B-12) 1,000 mcg IM X1 #0 01/06/18 02/05/19 ibuprofen #0 01/06/18 02/05/19 multivitamin [Multiple Vitamins] 1 tab PO QDAY #0 01/06/18 02/05/19 Previous Rx's Medication Instructions Recorded fluticasone propionate 50 1 spray NASAL DAILY #15.8 gram 01/27/18 mcg/actuation nasal spray,suspension ketorolac 10 mg PO TID PRN #20 tab 05/16/19 ondansetron 4 mg PO Q6H PRN #20 tab 05/16/19 tamsulosin 0.4 mg PO DAILY #7 cap 05/16/19 Allergies Allergy/AdvReac Type Severity Reaction Status Date / Time iodine Allergy Intermediate Verified 02/05/19 09:42 Review of Systems <TRISH Moraes - Last Filed: 05/16/19 20:53> Review of Systems Narrative: GENERAL: Denies chills, fatigue, malaise, fever, sweats. HEENT: Denies sinus pain, ear pain, sore throat, difficulty swallowing, dizziness. RESPIRATORY: Denies dyspnea, cough, wheezing, hemoptysis, sputum. CARDIOVASCULAR: Denies chest pain, palpitations, orthopnea, edema, GASTROINTESTINAL: see HPI : See HPI MUSCULOSKELETAL: denies weakness, joint pain, or bony pain SKIN: Denies rash, skin lesions, or other NEUROLOGIC: Denies weakness, headache, numbness, change in speech, confusion, seizures, incoordination. PSYCHIATRIC: No concerning psychosocial issues. 12 point review of systems is negative except for those stated above PFSH <TRISH Moraes - Last Filed: 05/16/19 20:53> Social History Smoking Status: Former smoker Exam <TRISH Moraes - Last Filed: 05/16/19 20:53> Narrative Exam Narrative: GENERAL: Obese female in no acute distress. HEAD: Atraumatic. Normocephalic. No temporal or scalp tenderness. EYES: Pupils equal round and reactive. Extraocular motions intact. No scleral icterus. No injection or drainage. ENT: Nose without bleeding, purulent drainage or septal hematoma. Throat without erythema, tonsillar hypertrophy or exudate. Uvula midline. Airway patent. NECK: Trachea midline. No JVD or lymphadenopathy. Supple, nontender, no meningeal signs. CARDIOVASCULAR: Regular rate and rhythm without murmurs, gallops, or rubs. RESPIRATORY: Clear to auscultation. Breath sounds equal bilaterally. No wheezes, rales, or rhonchi. GASTROINTESTINAL: Abdomen soft, non-tender, nondistended. No hepato-splenom egaly, or palpable masses. No guarding. Active bowel sounds all 4 quadrants EXTREMITIES: No clubbing, cyanosis, or edema. No joint tenderness, effusion, or edema noted. BACK: Nontender without deformity or crepitance. No flank tenderness on right side, no CVA tenderness on left side NEURO: AOx3. SKIN: No rash or erythema. Initial Vital Signs Initial Vital Signs: Vital Signs Temperature 97.6 F 05/16/19 17:30 Pulse Rate 83 05/16/19 17:30 Respiratory Rate 20 05/16/19 17:30 Blood Pressure 135/84 05/16/19 17:30 Pulse Oximetry 99 05/16/19 17:30 <Shannon Gregg DO - Last Filed: 05/17/19 03:34> Initial Vital Signs Initial Vital Signs: Vital Signs Temperature 97.6 F 05/16/19 17:30 Pulse Rate 83 05/16/19 17:30 Respiratory Rate 20 05/16/19 17:30 Blood Pressure 135/84 05/16/19 17:30 Pulse Oximetry 99 05/16/19 17:30 Course <ZHENG Moraes-BC - Last Filed: 05/16/19 20:53> Orders Ordered: ED Orders 05/16/19 18:52 CT kidney ureter bladder (KUB) Stat 05/16/19 19:10 Complete Blood Count AUTO DIFF Stat Comprehensive Metabolic Panel Stat Magnesium Stat Discontinued Medications Sodium Chloride (Normal Saline 0.9%) 1,000 mls @ 1,000 mls/hr IV BOLUS ONE Stop: 05/16/19 19:51 Last Infusion: 05/16/19 21:03 Dose: 0 mls/hr Documented by: Admin: 05/16/19 19:30 Dose: 1,000 mls/hr Documented by: LILLY Ketorolac Tromethamine (Toradol) 30 mg IV NOW ONE Stop: 05/16/19 20:24 Last Admin: 05/16/19 20:26 Dose: 30 mg Documented by: LILLY Ketorolac Tromethamine (Toradol 10mg Prepack) 1 bottle MISC SEEINSTR ONE Stop: 05/16/19 20:41 Last Admin: 05/16/19 20:52 Dose: Not Given Documented by: TAYO Ondansetron HCl (Zofran Odt Prepack) 1 bottle MISC SEEINSTR ONE Stop: 05/16/19 20:41 Last Admin: 05/16/19 20:49 Dose: 1 bottle Documented by: TAYO Vital Signs Vital signs: Vital Signs - 8 hr 05/16/19 20:33 Pulse Rate 70 Respiratory Rate 18 Blood Pressure [Left Arm] 128/60 Pulse Oximetry 98 <Shannon Gregg DO - Last Filed: 05/17/19 03:34> Orders Ordered: ED Orders 05/16/19 18:52 CT kidney ureter bladder (KUB) Stat 05/16/19 19:10 Complete Blood Count AUTO DIFF Stat Comprehensive Metabolic Panel Stat Magnesium Stat Discontinued Medications Sodium Chloride (Normal Saline 0.9%) 1,000 mls @ 1,000 mls/hr IV BOLUS ONE Stop: 05/16/19 19:51 Last Infusion: 05/16/19 21:03 Dose: 0 mls/hr Documented by: Admin: 05/16/19 19:30 Dose: 1,000 mls/hr Documented by: LILLY Ketorolac Tromethamine (Toradol) 30 mg IV NOW ONE Stop: 05/16/19 20:24 Last Admin: 05/16/19 20:26 Dose: 30 mg Documented by: LILLY Ketorolac Tromethamine (Toradol 10mg Prepack) 1 bottle MISC SEEINSTR ONE Stop: 05/16/19 20:41 Last Admin: 05/16/19 20:52 Dose: Not Given Documented by: TAYO Ondansetron HCl (Zofran Odt Prepack) 1 bottle MISC SEEINSTR ONE Stop: 05/16/19 20:41 Last Admin: 05/16/19 20:49 Dose: 1 bottle Documented by: TAYO Vital Signs Vital signs: Vital Signs - 8 hr 05/16/19 20:33 Pulse Rate 70 Respiratory Rate 18 Blood Pressure [Left Arm] 128/60 Pulse Oximetry 98 MDM - Female Genitourinary <ZHENG Moraes- - Last Filed: 05/16/19 20:53> Lab Data Result diagrams: 05/16/19 19:10 05/16/19 19:10 Labs: Lab Results 05/16/19 05/16/19 05/16/19 Range/Units 17:40 19:10 19:10 WBC 6.0 (4.5-11.0) X10^3/uL RBC 4.58 (4.0-5.2) X10^6/uL Hgb 12.9 (12.0-16.0) g/dL Hct 38.5 (36-46) % MCV 84.2 (80-100) fL MCH 28.2 (26-34) PG MCHC 33.5 (30-36) % RDW 13.9 (11.6-14.8) % Plt Count 176 (150-400) X10^3/uL Neut % (Auto) 42.3 L (50-75) % Lymph % (Auto) 43.8 H (25-40) % [place] % (Auto) 10.1 (3-14) % Eos % (Auto) 2.7 (2-4) % Baso % (Auto) 1.1 (0-2) % Neut # (Auto) 2500 (3168-8676) /uL Lymph # (Auto) 2600 (4472-5342) /uL [place] # (Auto) 600 (0-900) /uL Eos # (Auto) 200 (0-450) /uL Baso # (Auto) 100 (0-100) /uL Sodium 143 (137-145) mmol/L Potassium 3.9 (3.4-5.1) mmol/L Chloride 105 (98-107) mmol/L Carbon Dioxide 28 (22-32) mmol/L BUN 23 H (7-17) mg/dL Creatinine 0.60 (0.52-1.04) mg/dL Estimated GFR > 60.0 (>60) mL/min BUN/Creatinine Ratio 38.3 H (6-22) Glucose 95 (70-100) mg/dL Calcium 9.6 (8.4-10.2) mg/dL Magnesium 2.1 (1.6-2.3) mg/dL Total Bilirubin 0.4 (0.2-1.3) mg/dL AST 28 (14-36) IU/L ALT 26 (9-52) IU/L Alkaline Phosphatase 73 (38-126) U/L Total Protein 7.5 (6.3-8.2) g/dL Albumin 4.3 (3.5-5.0) g/dL Globulin 3.2 (1.7-4.1) g/dL Albumin/Globulin Ratio 1.3 (1.0-2.8) Urine RBC 10-30/hpf H (0-5/HPF) Urine WBC 10-30/hpf H (0-5/HPF) Urine Bacteria None seen (None) Ur Culture Indicated? Specimen cultured Urine Dip Bedside Urine Glucose Negative Bedside Urine Bilirubin - Negative Bedside Urine Ketone - Negative Urine Specific [place] 1.015 Bedside Urine Occult Blood +++ Bedside Urine pH 8.0 Bedside Urine Protein +/- 15 Bedside Urine Urobilinogen 1+ 2mg Bedside Urine Nitrite - Negative Bedside Urine Leukocytes ++ [address] KUB: Radiologist's impression: [address] [address] [address] Scan Report Signed Patient: Beryl Rodríguez JMR#: [id number] : 1965Acct:[id number] Age/Sex: 53 / FDate of Service: 05/16/19 Loc: ED Accession Number: [id number] Procedure: CT kidney ureter bladder (KUB) Ordering Provider: Shannon Ha [employer]- PROCEDURE: CT KIDNEY URETER BLADDER (KUB) INDICATIONS: flank pain, hx stone TECHNIQUE: Noncontrast 5 mm thick sections acquired from the diaphragms to the symphysis. 5 mm thick coronal and sagittal reformats were then performed. For radiation dose reduction, the following was used: automated exposure control, adjustment of mA and/or kV according to patient size. COMPARISON: None. FINDINGS: Image quality: Excellent. Lung bases: Lung bases are clear. Heart size is normal. Urinary system: There is an 8 mm stone in the distal right ureter at the right ureterovesical junction, causing moderate hydronephrosis and hydroureter. Kidneys are normal in size. No other kidney stones. Bladder wall thickness is normal; no calcified bladder stones. Other solid organs: There is a 1.7 cm low density nodules in liver (segment IV), most likely a hepatic cyst. Liver is normal in size. Gallbladder is contracted. Pancreas is normal in contours. Spleen is normal in size. No adrenal nodules. Peritoneum and bowel: Unenhanced bowel loops demonstrate normal wall thickness and caliber. Normal appendix. No free fluid or air. Nodes and vessels: No retroperitoneal or mesenteric adenopathy by size criteria. Aorta and inferior vena cava are normal in caliber. Abdominal wall: No ventral hernias. Pelvis: Uterus and ovaries are unremarkable. No free pelvic fluid. No inguinal hernias or adenopathy. Bones: No suspicious bony lesions. No vertebral body compression fractures. IMPRESSION: 1. An 8 mm obstructing stone in the distal right ureter at the right UVJ causing moderate right hydronephrosis and hydroureter. 2. A 1.7 cm low density nodule in liver, most likely a cyst. Dictated by: Vu Penn M.D. on 05/16/2019 at 20:03 Approved by: Vu Penn M.D. on 05/16/2019 at 20:11 [facility] Narrative Medical decision making narrative: The patient is a 53-year-old female who presents with a chief complaint of flank pain. She has an 8 mm stone at her right UVJ. She does not have any bacteria or nitrates in her urine, no leuk ocytosis fevers so do not believe that her stone is infected. 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 I did give her prescription of Toradol as well as Zofran. I discussed at length straining her urine, following up with primary care provider, as well as the possibility of a urologist. I also discussed the possibility of a liver cyst She states that she is well-versed in kidney stones. I discussed going back to the ER for any acute concerns such as inability keep down fluids. Patient has no questions or concerns upon discharge. <Shannon Gregg, DO - Last Filed: 05/17/19 03:34> Lab Data Labs: Lab Results 05/16/19 05/16/19 05/16/19 Range/Units 17:40 19:10 19:10 WBC 6.0 (4.5-11.0) X10^3/uL RBC 4.58 (4.0-5.2) X10^6/uL Hgb 12.9 (12.0-16.0) g/dL Hct 38.5 (36-46) % MCV 84.2 (80-100) fL MCH 28.2 (26-34) PG MCHC 33.5 (30-36) % RDW 13.9 (11.6-14.8) % Plt Count 176 (150-400) X10^3/uL Neut % (Auto) 42.3 L (50-75) % Lymph % (Auto) 43.8 H (25-40) % [place] % (Auto) 10.1 (3-14) % Eos % (Auto) 2.7 (2-4) % Baso % (Auto) 1.1 (0-2) % Neut # (Auto) 2500 (4016-1279) /uL Lymph # (Auto) 2600 (0186-3034) /uL [place] # (Auto) 600 (0-900) /uL Eos # (Auto) 200 (0-450) /uL Baso # (Auto) 100 (0-100) /uL Sodium 143 (137-145) mmol/L Potassium 3.9 (3.4-5.1) mmol/L Chloride 105 (98-107) mmol/L Carbon Dioxide 28 (22-32) mmol/L BUN 23 H (7-17) mg/dL Creatinine 0.60 (0.52-1.04) mg/dL Estimated GFR > 60.0 (>60) mL/min BUN/Creatinine Ratio 38.3 H (6-22) Glucose 95 (70-100) mg/dL Calcium 9.6 (8.4-10.2) mg/dL Magnesium 2.1 (1.6-2.3) mg/dL Total Bilirubin 0.4 (0.2-1.3) mg/dL AST 28 (14-36) IU/L ALT 26 (9-52) IU/L Alkaline Phosphatase 73 (38-126) U/L Total Protein 7.5 (6.3-8.2) g/dL Albumin 4.3 (3.5-5.0) g/dL Globulin 3.2 (1.7-4.1) g/dL Albumin/Globulin Ratio 1.3 (1.0-2.8) Urine RBC 10-30/hpf H (0-5/HPF) Urine WBC 10-30/hpf H (0-5/HPF) Urine Bacteria None seen (None) Ur Culture Indicated? Specimen cultured Urine Dip Bedside Urine Glucose Negative Bedside Urine Bilirubin - Negative Bedside Urine Ketone - Negative Urine Specific [place] 1.015 Bedside Urine Occult Blood +++ Bedside Urine pH 8.0 Bedside Urine Protein +/- 15 Bedside Urine Urobilinogen 1+ 2mg Bedside Urine Nitrite - Negative Bedside Urine Leukocytes ++ 125 Esterase Discharge Plan Departure Patient Disposition: Home Clinical Impression: Calculus of distal right ureter, Liver nodule Discharge Date/Time: 05/16/19 21:07 Instructions: DI for Kidney Stones Activity Restrictions/Additional Instructions: Today we found an 8 mm kidney stone on your right side. You do not have any b acteria or nitrites in your urine as well as no urinary tract infection symptoms such as burning when you urinate. I do not believe we need to start antibiotics at this point. Urine culture is pending at this time. As discussed, you do have a nodule on her liver, most likely a cyst. Please follow up with primary care provider. Please push fluids, I have given you a prescription of pain and nausea medication. Do not combine the Toradol with any other NSAIDs such as Motrin or Aleve. Please follow up with primary care provider. Our walk-in clinic will also do follow-up for patients. I have given you contact information for the [facility] human resources representative. If this stone does not pass, you may need to see a urologist to help facilitate stone removal. Prescriptions: New ondansetron 4 mg tablet,disintegrating 4 mg PO Q6H PRN (Reason: nausea and vomiting) Qty: 20 RF: 0 ketorolac 10 mg tablet 10 mg PO TID PRN (Reason: pain) Qty: 20 RF: 0 tamsulosin 0.4 mg capsule 0.4 mg PO DAILY Qty: 7 RF: 0 No Action fluticasone propionate [Flonase Allergy Relief] 50 mcg/actuation spray,suspension 1 spray NASAL DAILY Qty: 15.8 RF: 1 ibuprofen 200 MG capsule Qty: 0 RF: 0 cyanocobalamin (vitamin B-12) 1,000 MCG/1 ML solution 1,000 mcg IM X1 Qty: 0 RF: 0 cholecalciferol (vitamin D3) [Vitamin D3] 400 unit Tablet,Chewable Qty: 0 RF: 0 multivitamin [Multiple Vitamins] 1 EACH tablet 1 tab PO QDAY Qty: 0 RF: 0 Referrals: [facility] [Outside] <Shannon Gregg DO - Last Filed: 05/17/19 03:34> Sign Out Provider Sign Out Attestation: I was immediately available in the department for consultation. This documentation has been reviewed and I agree with assessment and plan. Supervised by Shannon Gregg DO
[2019-05-16] MEDS: ONDANSETRON 4 MG ODT PREPACK 1 BOTTLE MISC (20:49)
== END 2019-05-16 21:07 | disposition home or self-care (01) ==
PROVIDERS: Emergency Medicine; Emergency Provider Nurse Practitioner Family
DX: N20.1 Calculus of ureter (principal); K76.89 Other specified diseases of liver
CPT/HCPCS: 36591; 74176; 80053; 81003; 81015; 83735; 85025; 87077; 87086; 87186; 96361; 96374; 99283; 99284; J1885

== ENCOUNTER → 2019-10-12 10:59 | Outpatient (CLI) | payer OTHER, BC, SELFPAY ==
--- NOTE | 2019-10-12 | DI.US.S_ITS ---
PROCEDURE: US ABDOMEN COMPLETE INDICATIONS: HEPATOMEGALY TECHNIQUE: Real-time scanning was performed of the abdominal and retroperitoneal organs, with image documentation. COMPARISON: None. FINDINGS: Liver: Liver is enlarged in size at 21.1 cm craniocaudad and homogeneous in echotexture, diffusely hyperechoic consistent with fatty infiltration with relatively moderate sparing near the gallbladder fossa. No hepatic cysts or solid masses are found.. Gallbladder: The gallbladder appears normal. Biliary ducts: Intrahepatic bile ducts are non-dilated. Extrahepatic bile duct caliber measures 4.0 mm. Normal is 6-7 mm or less in diameter, or 10 mm or less post-cholecystectomy. Pancreas: Visualized portions of the pancreas are sonographically normal. Spleen: Spleen is normal in size and homogeneous in echotexture. Kidneys: Kidneys are normal in size and echotexture. Right kidney measures 11.6 cm long; left kidney measures 14.2 cm long. No hydronephrosis or nephrolithiasis. No solid masses. Aorta: Visualized aorta is normal in caliber at less than 3 cm. Iliacs: Proximal common iliac arteries are normal in caliber at less than 2.5 cm. IVC: Intrahepatic inferior vena cava is patent. Miscellaneous: No free abdominal fluid. IMPRESSION: Hepatomegaly with prominent fatty infiltration, but without mass or biliary distention within the liver. The extrahepatic bile ducts are normal in caliber measuring 4 mm at the common duct at the pancreatic head level. The spleen is not enlarged. No ascites or varices were found. Dictated by: Carl Cunningham M.D. on 10/12/2019 at 16:04 Approved by: Carl Cunningham M.D. on 10/12/2019 at 16:06
== END ==
PROVIDERS: PCP Naturopath; Visit Provider Nurse Practitioner
DX: R16.0 Hepatomegaly, not elsewhere classified (principal); K76.0 Fatty (change of) liver, not elsewhere classified
CPT/HCPCS: 76700

== ENCOUNTER → 2021-04-06 13:33 | Outpatient (CLI) | payer OTHER, BC, SELFPAY ==
--- NOTE | 2021-04-06 13:37 | DI.RAD.S_ITS ---
PROCEDURE: XR CERVICAL SPINE 4V OR 5V INDICATIONS: Cervicalgia TECHNIQUE: 5 views of the cervical spine were acquired. COMPARISON: [facility], CR, XR CERVICAL SPINE WITH OBLIQUES, 01/18/2020, 14:26. FINDINGS: Bones: No fractures or dislocations to the T1 level. No suspicious bony lesions. Loss of lordosis which could be related to muscle spasm, rigidity or simply positional. Fusion present at the C 5-C6 and C6-C7 levels. Moderate bilateral neural foraminal narrowing on the left at the C3-C4 and C4-C5 level and no significant neural foraminal narrowing on the right. Moderate multilevel mid and lower cervical spine facet joint arthropathy and uncovertebral hypertrophy. Soft tissues: Prevertebral soft tissues are normal in thickness. IMPRESSION: 1. Multilevel spondylosis similar prior examination. Dictated by: Cristofer CABRERA Interpreted: Dyan Grijalva MD on 04/06/2021 at 14:06 Transcribed by: MELINDA on 04/06/2021 at 14:10 Approved by: Dyan Grijalva M.D. on 04/06/2021 at 18:55
== END ==
PROVIDERS: PCP Naturopath; Referring Provider Naturopath; Visit Provider Naturopath
DX: M54.2 Cervicalgia (principal); M47.812 Spondylosis without myelopathy or radiculopathy, cervical region
CPT/HCPCS: 72050

== ENCOUNTER → 2021-04-07 07:07 | Outpatient (CLI) | payer OTHER, BC, SELFPAY ==
[2021-04-07 08:34] LABS: Add Manual Diff / Slide Review NO; Basophils Absolute Auto 0 /uL (0-100); Basophils Percent Auto 0.9 % (0-2); Eosinophils Absolute Auto 100 /uL (0-450); Eosinophils Percent Auto 2.5 % (2-4); Hematocrit 41.7 % (36-46); Hemoglobin 13.7 g/dL (12.0-16.0); Lymphocytes Absolute Auto 1500 /uL (1100-4500); Lymphocytes Percent Auto 29.1 % (25-40); Mean Corpuscular Hemoglobin 28.4 PG (26-34); Mean Corpuscular Volume 86.1 fL (80-100); Monocytes Absolute Auto 300 /uL (0-900); Monocytes Percent Auto 5.9 % (3-14); Neutrophils Absolute Auto 3100 /uL (1500-7000); Neutrophils Percent Auto 61.6 % (50-75); Platelet Count 196 X10^3/uL (150-400); Red Blood Cell Count 4.84 X10^6/uL (4.0-5.2); Red Cell Distribution Width 13.8 % (11.6-14.8); White Blood Cell Count 5.1 X10^3/uL (4.5-11.0)
[2021-04-07 08:41] LABS: Prothrombin Time 11.6 SECONDS (10.1-12.7)
[2021-04-07 08:42] LABS: Hemoglobin A1C% w Est Avg Glu 5.9 % (4.0-6.0)
[2021-04-07 08:44] LABS: PTT Partial Thromboplastin Tim 30 SECONDS (26.4-36.2)
[2021-04-07 08:50] LABS: Alanine Aminotransferase 60 IU/L (<35); Albumin 4.7 g/dL (3.5-5.0); Albumin Globulin Ratio 1.3 (1.0-2.8); Alkaline Phosphatase 86 U/L (38-126); Aspartate Aminotransferase 42 IU/L (14-36); BUN Creatinine Ratio 22.7 (6-22); Bilirubin Total 0.5 mg/dL (0.2-1.3); Blood Urea Nitrogen 15 mg/dL (7-17); Calcium 9.9 mg/dL (8.4-10.2); Carbon Dioxide 27 mmol/L (22-32); Chloride 104 mmol/L (98-107); Cholesterol 246 mg/dL (140-199); Estimated Glomerular Filt Rate > 60.0 mL/min (>60); Globulin 3.5 g/dL (1.7-4.1); Glucose 152 mg/dL (70-100); HDL Cholesterol 50 mg/dL (40-60); HEMOLYSIS < 15 (0-50); LDL Cholesterol Calculated 145 mg/dL (<100); Potassium 4.3 mmol/L (3.4-5.1); Sodium 142 mmol/L (137-145); Total Protein 8.2 g/dL (6.3-8.2); Triglycerides 253 mg/dL (35-150)
[2021-04-07 08:56] LABS: HEMOLYSIS < 15 (0-50); Iron 86 ug/dL (37-170)
[2021-04-07 09:06] LABS: Percent Iron Saturation 28 % (15-50); Total Iron Binding Capacity 308 ug/dL (265-497); Transferrin 251 mg/dL (206-381)
[2021-04-07 09:13] LABS: Vitamin D 25 Hydroxy (D3) 50.1 ng/mL (30.0-100.0)
[2021-04-07 09:14] LABS: Free T3, Triiodothyronine Free 4.11 pg/mL (2.77-5.27)
[2021-04-07 09:24] LABS: Ferritin 153 ng/mL (11-264)
[2021-04-07 09:28] LABS: Thyroid Stimulating Hormone 2.95 uIU/mL (0.47-4.68)
[2021-04-07 09:54] LABS: Folate > 20.0 ng/mL (2.76-20.0); Vitamin B12 880 pg/mL (239-931)
[2021-04-11 15:56] LABS: Vitamin B1 166.2 nmol/L (66.5-200.0)
== END ==
PROVIDERS: PCP Naturopath; Referring Provider Surgery; Visit Provider Surgery
DX: Z01.812 Encounter for preprocedural laboratory examination (principal)
CPT/HCPCS: 36415; 80053; 80061; 82306; 82607; 82728; 82746; 83036; 83540; 83550; 84425; 84443; 84481; 85025; 85610; 85730